=== PATIENT | male | born 1960 | race Asian ===

== ENCOUNTER 2020-08-28 12:43 | Outpatient (CLI) | payer OTHER | END 2020-08-28 19:06 | disposition home or self-care (01) | LOC: RAD 12:43 | PROVIDERS: ATTEND Nurse Practitioner Family | DX: M25.532 Pain in left wrist (principal); M25.531 Pain in right wrist ==

== ENCOUNTER 2023-04-20 06:31 | Emergency (ER) | payer OTHER ==
[~2023-04-20] VITALS: Ht 167.6 cm; Wt 76.2 kg
[2023-04-20 06:40] VITALS: TEMP 98.1
[2023-04-20] MEDS ORDERED: ZESTRIL40 MG PO (06:54)
[2023-04-20] MEDS ORDERED: CADUET10 MG/10 M PO (06:56)
[2023-04-20 07:09] LABS: PLATELET COUNT 289 K/uL (142-355)
[2023-04-20 07:31] LABS: POTASSIUM 4.5 mmol/L (3.6-5.2)
[2023-04-20 09:56] VITALS: BP 121/76
== END 2023-04-20 09:56 | disposition home or self-care (01) ==
LOC: ED 06:31
PROVIDERS: Family Medicine
DX: M79.605 Pain in left leg (principal); T67.5XXA Heat exhaustion, unspecified, initial encounter; X30.XXXA Exposure to excessive natural heat, initial encounter; Y93.H2 Activity, gardening and landscaping; Y92.007 Garden or yard of unspecified non-institutional (private) residence as the place of occurrence of the external cause; Y99.9 Unspecified external cause status; E86.0 Dehydration; N17.9 Acute kidney failure, unspecified; M10.9 Gout, unspecified
CPT/HCPCS: 36415; 80053; 80307; 81002; 82550; 83735; 84550; 85027; 85379; 96361; 96374; 99284; J2405